=== PATIENT | female | born 1970 | race Caucasian/White ===

== ENCOUNTER 2023-04-18 21:47 | Emergency (ER) | payer OTHER ==
[~2023-04-18] VITALS: Ht 177.8 cm; Wt 106.4 kg
[2023-04-18 21:59] VITALS: TEMP 98.3
[2023-04-18 23:26] VITALS: BP 145/91; PULSE 81
== END 2023-04-18 23:27 | disposition home or self-care (01) ==
LOC: COL.ER 21:47
DX: S92.425A Nondisplaced fracture of distal phalanx of left great toe, initial encounter for closed fracture (principal); X50.1XXA Overexertion from prolonged static or awkward postures, initial encounter; W01.0XXA Fall on same level from slipping, tripping and stumbling without subsequent striking against object, initial encounter

== ENCOUNTER 2023-04-23 19:01 | Emergency (ER) | payer OTHER ==
[~2023-04-23] VITALS: Ht 177.8 cm; Wt 106.4 kg
[2023-04-23 19:06] VITALS: TEMP 99
[2023-04-23 21:21] VITALS: BP 172/99; PULSE 82
== END 2023-04-23 21:21 | disposition home or self-care (01) ==
LOC: COL.ER 19:01
DX: H43.391 Other vitreous opacities, right eye (principal)